=== PATIENT | female | born 1985 | race Caucasian/White ===

== ENCOUNTER 2021-06-07 17:15 | Emergency (ER) | payer OTHER, SELFPAY ==
[2021-06-07 17:20] VITALS: BP 159/96; PULSE 79; RESP 17; TEMP 36.5; O2SAT 96; BMI 36.5
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
--- NOTE | 2021-06-07 18:33 | PC.NURSE ---
Patient removed her c-collar herself prior to imaging and clearance.
[2021-06-07] MEDS: methocarbamoL 500 MG TABLET PO (19:07)
[2021-06-07] MEDS: KETOROLAC 30 MG/ML VIAL 15 MG IM (19:07)
[2021-06-07] MEDS: HYDROCODONE/ACET 5/325 TABLET 1 TAB PO (19:07)
[2021-06-07 20:02] LABS: Add Manual Diff / Slide Review NO; Basophils Absolute Auto 100 /uL (0-100); Basophils Percent Auto 0.9 % (0-2); Eosinophils Absolute Auto 0 /uL (0-450); Eosinophils Percent Auto 0.4 % (2-4); Hematocrit 40.8 % (36-46); Hemoglobin 14.2 g/dL (12.0-16.0); Lymphocytes Absolute Auto 1700 /uL (1100-4500); Lymphocytes Percent Auto 16.3 % (25-40); Mean Corpuscular HGB Conc 34.8 % (30-36); Mean Corpuscular Hemoglobin 30.6 PG (26-34); Mean Corpuscular Volume 87.9 fL (80-100); Monocytes Absolute Auto 800 /uL (0-900); Monocytes Percent Auto 7.7 % (3-14); Neutrophils Absolute Auto 7800 /uL (1500-7000); Neutrophils Percent Auto 74.7 % (50-75); Platelet Count 217 X10^3/uL (150-400); Red Blood Cell Count 4.64 X10^6/uL (4.0-5.2); Red Cell Distribution Width 13.4 % (11.6-14.8); White Blood Cell Count 10.5 X10^3/uL (4.5-11.0)
[2021-06-07 20:15] LABS: Appearance Urine UA CLEAR; Bilirubin Urine UA NEGATIVE (NEGATIVE); Color Urine UA YELLOW; Glucose Urine UA NEGATIVE (Negative); Ketones Urine UA NEGATIVE (NEGATIVE); Leukocyte Esterase Urine UA NEGATIVE (NEGATIVE); Nitrite Urine UA NEGATIVE (Negative); Occult Blood Urine UA TRACE-INTACT (Negative); Protein Urine UA NEGATIVE (Negative); Urobilinogen Urine UA 0.2 E.U./dL (0.2)
[2021-06-07 20:17] LABS: Alanine Aminotransferase 38 IU/L (<35); Albumin 4.4 g/dL (3.5-5.0); Albumin Globulin Ratio 1.5 (1.0-2.8); Alkaline Phosphatase 43 U/L (38-126); Aspartate Aminotransferase 34 IU/L (14-36); BUN Creatinine Ratio 18.7 (6-22); Bilirubin Total 0.7 mg/dL (0.2-1.3); Blood Urea Nitrogen 14 mg/dL (7-17); Calcium 9.2 mg/dL (8.4-10.2); Carbon Dioxide 24 mmol/L (22-32); Chloride 106 mmol/L (98-107); Estimated Glomerular Filt Rate > 60.0 mL/min (>60); Globulin 2.9 g/dL (1.7-4.1); Glucose 93 mg/dL (70-100); HEMOLYSIS < 15 (0-50); Sodium 136 mmol/L (137-145); Total Protein 7.3 g/dL (6.3-8.2)
[2021-06-07 20:17] LABS: pH Urine UA 5.5 (4.5-8.0)
[2021-06-07 20:23] LABS: RBC Urine 0-1/HPF (0-5/HPF); Squamous Epithelial Cell Urine 1-5 /HPF (0-5/HPF); WBC Urine 0-1/HPF (0-5/HPF)
[2021-06-07 20:24] LABS: Amorphous Sediment Urine 1+; Bacteria Urine Occasional (0-1); Culture Indicated Urine Cult Not Indicated
[2021-06-07] MEDS: OXYCODONE/ACETAMINOPHEN 5/325 TABLET 1 TAB PO (20:36)
[2021-06-07] MEDS: LIDOCAINE PATCH 1 EACH ADH..PATCH 2 EACH TOP (20:37)
[2021-06-07 20:56] VITALS: BP 135/89; PULSE 77; RESP 18; O2SAT 99
== END 2021-06-07 20:57 | disposition home or self-care (01) ==
PROVIDERS: Emergency Provider Nurse Practitioner Critical Care Medicine
DX: S46.819A Strain of other muscles, fascia and tendons at shoulder and upper arm level, unspecified arm, initial encounter (principal); G44.209 Tension-type headache, unspecified, not intractable; M54.2 Cervicalgia; V89.2XXA Person injured in unspecified motor-vehicle accident, traffic, initial encounter
CPT/HCPCS: 36415; 70450; 71045; 72125; 80053; 81001; 81025; 85025; 96372; 99284; J1885

== ENCOUNTER → 2022-02-03 11:37 | Outpatient (CLI) | payer OTHER, SELFPAY ==
[2022-02-03 13:31] LABS: COVID19 -Nasal RAPID Negative (Negative)
== END ==
PROVIDERS: PCP Student in an Organized Health Care Education/Training Program; Visit Provider Surgery
DX: Z20.822 Contact with and (suspected) exposure to COVID-19 (principal); Z01.812 Encounter for preprocedural laboratory examination
CPT/HCPCS: 87635; C9803

== ENCOUNTER 2022-02-04 09:57 | Day surgery (SDC) | payer OTHER, SELFPAY ==
[2022-02-04] VITALS (8 sets, daily range): BP systolic 100–152; BP diastolic 68–103; PULSE 69–90; RESP 13–19; TEMP 36.1–36.9; O2SAT 98–100; BMI 34.9
--- NOTE | 2022-02-04 | PATH_ITS ---
[facility] Accession Number: [id number] . 01 Material submitted: . back - LEFT LOW BACK . 01 Clinical history: . MASS . 01 Diagnosis: Left Low Back, Excision: Mature fibroadipose tissue with focal fat necrosis, consistent with lipoma. [facility] 02/07/2022 1655 Local . 01 Electronically signed: . Evan Rowe MD, Dermatopathologist NPI- [id number] . 01 Gross description: . The specimen is received in formalin labeled with the patient's name, , and left low back mass, and consists of a yellow lobulated irregular soft tissue fragment measuring 7.9 x 7.1 x 2.8 cm. The external surface is inked blue. Sectioning reveals a homogenous unremarkable cut surface. Production Manager sections are submitted in A1-A2. ([id number]) /MRV 02/05/2022 1209 Local . 01 Pathologist provided ICD-10: D17.9 . 01 CPT . 780595 Specimen Comment: A courtesy copy of this report has been sent to [phone] Performed at: 01 [facility] [address] [place] [address] [id number] MD Eric Connelly MD Phone: [phone]
--- NOTE | 2022-02-04 10:34 | PM.HP.1 ---
History of Present Illness History of Present Illness Date Patient Seen: 02/04/22 Time Patient Seen: 10:34 Chief complaint: EXCISIONAL BX OF LEFT LOWER BACK MASS Narrative: 36-year-old with a left lower back mass. Please see the office from last month for details. She has had no changes with her health since then. Patient History Medical History (Updated 02/04/22 @ 09:50 by Mao Ariza RN) Anxiety Psoriasis Family & Social History Social History: household members spouse Tobacco & Substance use: Smoking Status Never smoker alcohol intake frequency a few times a month Substance Use Type does not use Meds Home Medications and Allergies Home Medications Medication Instructions Recorded Confirmed Type secukinumab 75 mg/0.5 mL 150 mg SUBCUT QWEEK 06/07/21 02/04/22 History subcutaneous syringe (Cosentyx) clobetasol 0.05 % topical cream 1 applic topical DAILY PRN Rash 12/23/21 02/04/22 History bupropion HCl 150 mg 24 hr tablet, 150 mg PO DAILY 02/04/22 02/04/22 History extended release Allergies Allergy/AdvReac Type Severity Reaction Status Date / Time No Known Drug Allergies Allergy Verified 02/04/22 09:43 Exam Vital Signs (past 8 hours): - 02/04/22 10:28 Temperature 96.9 F L Pulse Rate 89 Respiratory Rate 16 Blood Pressure 140/95 H Pulse Oximetry 98 Oxygen Delivery Method Room Air Oxygen Delivery Method Room Air Narrative Exam Narrative: There is a 2-3 cm soft mobile mass of the left lower back/left upper buttock Assessment & Plan Assessment and plan (1) Lipoma of lower back: Status: Acute Plan Plan to proceed with excisional biopsy in the operating room. Position in the right lateral decubitus position with anesthesia. Time Spent With Patient Critical Care time: I spent a total of [] minutes of critical care time on this patient's care today; this time is exclusive of procedural time.
[2022-02-04] MEDS: LACTATED RINGERS 1,000 ML 42 ML IV ×2 (10:35→14:58)
--- NOTE | 2022-02-04 14:50 | SUR.OPER ---
Lateral on a florence bag, head on pillow, gel axillary roll in place, bottom leg bent with gel pad under knee to foot, upper leg straight and supported with pillows. Upper arm supported by pillows and secured over bottom arm to padded arm board. Safety belt at hip, tape over blanket lower legs.
[2022-02-04] MEDS: BUPIVACAINE 0.25% (PF) 30 ML, EPINEPHrine 0.15 MG INJ (15:26)
--- NOTE | 2022-02-04 15:56 | PM.OP.1 ---
Operative Date/Time/Diagnoses Date of procedure: 02/04/22 Time of procedure: 15:56 Pre-op diagnosis: Left lower back mass Post-op diagnosis: same Procedure & Clinicians Procedure: Excisional biopsy of left lower back mass Same procedure as scheduled: Yes Surgeon: Gabriel Chau Operative Notes Procedure in detail: The patient was marked in the preoperative area. The patient was brought to the operating room, placed on the table in the supine position and general anesthesia was induced via LMA. She was then positioned in the right lateral decubitus position and a beanbag was used to stabilize here. She was secured with multiple straps to the table. We injected some cord % Marcaine with epinephrine over the mass. An 8 cm incision was created and dissection was carried down through the subcutaneous adipose tissue until the mass was encountered. The mass appeared to be a lipoma. Was approximately 8 cm x 5 cm. Once the mass was completely removed we reinspected the cavity. Small bleeder was cauterized. Additional local was injected into the deep aspect of the cavity. The wound was then closed in layers using multiple interrupted 3-0 Vicryl sutures followed by a running 4 Monocryl subcuticular skin closure. Steri-Strips and a Tegaderm were applied. EBL: 10 mL Post-operative Condition: stable Disposition: PACU
[2022-02-04] MEDS: OXYCODONE/ACETAMINOPHEN 5/325 TABLET 1 TAB PO (16:24)
== END 2022-02-04 16:43 | disposition home or self-care (01) ==
PROVIDERS: PCP Student in an Organized Health Care Education/Training Program; Referring Provider Surgery; Visit Provider Surgery
PROC: (CPT 21931; principal; 2022-02-04 11:15)
DX: D17.1 Benign lipomatous neoplasm of skin and subcutaneous tissue of trunk (principal)
CPT/HCPCS: 21931; 81025; J0171; J1100; J2250; J2405; J2704; J3010